=== PATIENT | male | born 1970 | race Caucasian/White ===

== ENCOUNTER 2023-09-07 17:04 | Emergency (ER) | payer OTHER, SELFPAY ==
[2023-09-07 17:18] VITALS: BP 133/89; PULSE 102; RESP 16; TEMP 36.5; O2SAT 98; BMI 33.7
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
== END 2023-09-07 17:45 | disposition home or self-care (01) ==
PROVIDERS: Emergency Provider Emergency Medicine
DX: S09.8XXA Other specified injuries of head, initial encounter (principal); V43.52XA Car driver injured in collision with other type car in traffic accident, initial encounter
CPT/HCPCS: 99281; 99282